=== PATIENT | female | born 1965 | race Caucasian/White ===

== ENCOUNTER 2018-05-10 21:06 | Emergency (ER) | payer MEDICAID ==
[~2018-05-10] VITALS: Ht 154.9 cm; Wt 77.1 kg
[2018-05-10] MEDS ORDERED: EFFEXOR 5050 MG/1 T1 PO (21:20)
[2018-05-10] MEDS ORDERED: MEDROLDOSEPACK PO (21:26)
[2018-05-10] MEDS ORDERED: TRIAMCINOLONE A80 G2 TOP (21:26)
[2018-05-10 22:00] VITALS: BP 113/71
== END 2018-05-10 22:01 | disposition home or self-care (01) ==
LOC: M.ERS 21:06
DX: R21 Rash and other nonspecific skin eruption (principal)

== ENCOUNTER 2018-09-19 10:34 | Emergency (ER) | payer OTHER, MEDICAID ==
[~2018-09-19] VITALS: Ht 154.9 cm; Wt 72.6 kg
[~2018-09-19 10:34] MED LIST: EFFEXOR 5050 MG/1 T1 PO; MEDROLDOSEPACK PO; TRIAMCINOLONE A80 G2 TOP
[2018-09-19 10:38] VITALS: BP 143/80
[2018-09-19] MEDS ORDERED: PRILOSEC 20 MG20 MG PO (10:42)
[2018-09-19] MEDS ORDERED: REGLAN 10 MG TA10 MG PO (10:42)
[2018-09-19] MEDS ORDERED: ZPAK PO (10:58)
[2018-09-19] MEDS ORDERED: MEDROLDOSEPACK PO (10:58)
[2018-09-19] MEDS ORDERED: NORCO 5-325 TA1 EACH PO (10:58)
[2018-09-19] MEDS ORDERED: TESSALON PERLE100 MG PO (10:58)
== END 2018-09-19 11:09 | disposition home or self-care (01) ==
LOC: M.ERS 10:34
DX: J20.9 Acute bronchitis, unspecified (principal); K21.9 Gastro-esophageal reflux disease without esophagitis; F17.210 Nicotine dependence, cigarettes, uncomplicated; Z88.5 Allergy status to narcotic agent; Z88.8 Allergy status to other drugs, medicaments and biological substances